=== PATIENT | female | born 1935 | race Caucasian/White ===

== ENCOUNTER 2019-03-20 07:23 | Day surgery (SDC) | payer OTHER, BC ==
[2019-03-19 11:09] VITALS: BMI 29.2
[2019-03-20] MEDS ORDERED: MIDAZOLAM HCL 2 MG/2 ML SINGLE DOSE VIAL ONE (09:24)
[2019-03-20] MEDS ORDERED: LIDOCAINE HCL 2% (50ML VIAL) INF ONE (09:36)
[2019-03-20 10:51] VITALS: TEMP 97.7
[2019-03-20 10:53] VITALS: BP 122/76; PULSE 70
--- NOTE | 2019-03-22 15:10 | PATH ---
Surgical Pathology Report Patient Name: GEOVANNA FLORES [facility]. Rec. #: [id number] /Age/Gender: 1935 (Age: 84) / F Account: [id number] Location: [facility] AMBULATORY Taken: 03/20/2019 Received: 03/20/2019 Reported: 03/22/2019 Physicians: Immanuel Al M.D. Specimen(s) Received LEFT THUMB MASS Clinical History Left thumb mass Final Diagnosis THUMB, LEFT, MASS, EXCISION: SKIN SHOWING ULCERATION WITH MARKED ACUTE AND CHRONIC INFLAMMATION AND GRANULATION TISSUE FORMATION. Electronically Signed Deena Kim M.D. Gross Description Received in formalin labeled "left thumb mass," are 2 rascon, irregular, unoriented portions of soft tissue measuring 0.5 x 0.3 x 0.2 cm and 0.6 x 0.3 x 0.3 cm. The specimens are submitted in toto in one cassette. /03/21/201903/21/2019
--- NOTE | 2019-03-25 11:18 | OP ---
DATE OF OPERATION: 03/20/2019 PREOPERATIVE DIAGNOSIS: Left thumb mass. POSTOPERATIVE DIAGNOSIS: Left thumb mass. OPERATIVE PROCEDURE: Left thumb mass excision. SURGEON: Immanuel Arnold MD ANESTHESIA: Local with sedation. COMPLICATIONS: None. ESTIMATED BLOOD LOSS: Minimal. INDICATIONS FOR PROCEDURE: The patient is an 84-year-old female who presented with the above finding indicated for operative procedure. Risks, benefits, and alternatives were discussed with the patient at length. Proper informed consent was obtained. DESCRIPTION OF PROCEDURE: After proper indication of the patient and correct operative site, patient was brought to the operating room, placed supine on the operating room table with prominences well padded. Sedation was given by the anesthesiologist. Local anesthesia was given. Left upper extremity was prepped and draped in the usual sterile fashion. A well-padded tourniquet was placed with a sterile prep. Esmarch bandage was used to exsanguinate left upper extremity. Tourniquet was inflated to 250 mmHg. The mass was visualized and ellipsed out in a longitudinal fashion, and blunt and sharp dissections through the subcutaneous tissues were taken to excise the entire mass in whole and sent for a pathologic evaluation. Once this was completed, the wound was irrigated and repaired with a 5-0 fast-absorbing plain gut suture in a [id number] fashion. The wound was dressed, and the patient was reversed from anesthesia and brought to recovery room in stable condition. She tolerated the procedure well. IMMANUEL ARNOLD M.D. [id number]
== END 2019-03-20 10:35 | disposition home or self-care (01) ==
LOC: FASU 07:23
PROVIDERS: ATTEND Orthopaedic Surgery Hand Surgery
PROC: 0JBK0ZZ Excision of Left Hand Subcutaneous Tissue and Fascia, Open Approach (ICD-10-PCS; principal; 2019-03-20 09:36)
DX: D21.12 Benign neoplasm of connective and other soft tissue of left upper limb, including shoulder (principal)
CPT/HCPCS: 88305-TC